=== PATIENT | male | born 1965 | race Caucasian/White ===

== ENCOUNTER → 2019-05-16 | Outpatient (CLI) | payer OTHER ==
--- NOTE | 2019-05-16 17:10 | RAD ---
Supine and upright views of the abdomen Clinical indications: Left lower quadrant abdominal pain for one month which is increasing and becoming worse. FINDINGS: Mild fecal retention is seen within the right side of the colon. No significant fecal retention is seen within the distal colon or rectosigmoid region. No dilatation of the colon is evident. No small bowel dilatation is seen. No air-fluid levels are seen. No free intraperitoneal air is evident. There is a round calcification within the right side of the anatomic pelvis which may represent a calcified phlebolith or a distal ureteral stone. This measures 3 mm IMPRESSION: 3 mm calcification within the right anatomic pelvis which could represent a calcified phlebolith or distal right ureteral stone. Clinical correlation is recommended. Mild fecal retention. No obstructive bowel pattern. There may be a compression deformity of the inferior endplate of L1. Clinical correlation is recommended. Electronically signed by: Ousmane Ortiz MD (05/16/2019 5:07 PM) [id number]
[2019-05-16 17:20] LABS: ALBUMIN 3.9 g/dL (3.4-5.0); ALBUMIN/GLOBULIN RATIO 0.9 (1.0-1.7); CALCIUM 9.2 mg/dL (8.5-10.1); CREATININE 0.8 mg/dL (0.7-1.3); GFR 100.7; TOTAL BILIRUBIN 0.6 mg/dL (0.2-1.0); TOTAL PROTEIN 8.1 g/dL (6.4-8.2)
[2019-05-16 17:25] LABS: WHITE BLOOD COUNT 8.2 x10^3/uL (4.0-11.0)
[2019-05-16 17:26] LABS: BASO % 1 % (0-3); EOS # 0.3 x10^3/uL (0.0-0.7); EOS % 3 % (0-3); HEMATOCRIT 42.1 % (39.0-53.0); HEMOGLOBIN 13.8 g/dL (13.0-17.5); LYMPH # 2.5 x10^3/uL (1.0-4.8); LYMPH % 31 % (24-48); MEAN CORPUSCULAR HEMOGLOBIN 30 pg (25-35); MEAN CORPUSCULAR HGB CONC 33 g/dL (31-37); MEAN CORPUSCULAR VOLUME 92 fL (79-100); MONO # 0.9 x10^3/uL (0.0-1.1); MONO % 11 % (0-9); NEUT # 4.4 x10^3uL (1.8-7.7); NEUT % 54 % (31-73); PLATELET COUNT 320 x10^3/uL (140-400); RED BLOOD COUNT 4.55 x10^6/uL (4.30-5.70)
[2019-05-16 17:33] LABS: CLARITY,URINE HAZY; COLOR,URINE YELLOW
[2019-05-16 17:34] LABS: BACTERIA,URINE 0 /HPF (0-FEW); BILIRUBIN,URINE NEG (NEG); GLUCOSE,URINE NEG (NEG); NITRITE,URINE NEG (NEG); RBC,URINE 0 /HPF (0-2); SQUAMOUS EPITHELIAL CELL,UR OCC /LPF; UROBILINOGEN,URINE 0.2 mg/dL (0.2 mg/dL); WBC,URINE 0 /HPF (0-4)
[2019-05-16 18:43] LABS: SEDIMENTATION RATE 28 (0-15)
== END | disposition home or self-care (01) ==
LOC: PMG 16:29
PROVIDERS: ATTEND Physician Assistant
DX: K56.41 Fecal impaction (principal)
CPT/HCPCS: 36415; 74019; 80053; 81001; 82150; 83690; 85025; 85651